=== PATIENT | male | born 1990 | race Caucasian/White ===

== ENCOUNTER 2019-09-05 20:52 | Observation (INO) ==
[2019-09-05] MEDS ORDERED: IOPAMIDOL 100 ML BOTTLE IV ONE (20:53)
--- NOTE | 2019-09-05 21:33 | Emergency Department Note ---
Abdominal Pain HPI - General Chief Complaint: Abdominal Pain Stated Complaint: abd pain Time Seen by Provider: 09/05/19 21:05 Source: patient Mode of arrival: ambulatory Limitations: no limitations - History of Present Illness HPI Narrative: 29-year-old male presents with right-sided abdominal pain for last 3 days. States it started out real mild and diffuse to the right upper and right lower quadrant of the abdomen. Over the last 3 days is progressively gotten worse and much worse today. Today it is really localized to the right lower quadrant of the abdomen. Pain is worse with movement. His nausea or vomiting. Decreased appetite today. No diarrhea. No fever or chills. Has never had pain like this in the past. Denies any abdominal surgeries. No home treatments. No dysuria or frequency. - Related Data Home Medications Medication Instructions Recorded Confirmed No Known Home Meds 09/05/19 09/05/19 Allergies Allergy/AdvReac Type Severity Reaction Status Date / Time No Known Drug Allergies Allergy Unverified 09/05/19 20:58 Review of Systems All systems ED: reviewed and negative except as stated. Abdominal Pain PMH - Past Medical History Medical history: Reports: no medical history Surgical history ED: Reports: orthopedic, other (Arm) - Social History Smoking status: Never smoker Alcohol use: Reports: Occasionally Drug use: Reports: none Physical Exam Limitations: no limitations General appearance: alert, obese Head: atraumatic, normocephalic, normal inspection Eye: Present: normal appearance. Absent: conjunctival injection ENT: Present: mucous membranes moist Chest: Present: symmetric chest wall rise Respiratory: Present: normal lung sounds bilaterally. Absent: respiratory distress, rales/crackles, wheezes, accessory muscle use Cardiovascular: Present: regular rate Abdominal: Present: soft, tenderness (Right lower quadrant and right periumbilical), normal bowel sounds. Absent: distention, guarding, rebound, rigidity, mass Neurological: Present: alert, oriented X3 Psychiatric: Present: normal affect, normal mood Skin: Present: warm, dry, intact Course Course Narrative: At 2145, care turned over to Dr. irwin due to shift change. Vital Signs Temperature 98.9 F 09/05/19 20:53 Pulse Rate 91 H 09/05/19 20:53 Respiratory Rate 18 09/05/19 20:53 Blood Pressure 147/100 09/05/19 20:53 Pulse Oximetry (%) 99 09/05/19 20:53 Temperature 99.8 F H 09/06/19 08:54 Pulse Rate 112 H 09/06/19 08:54 Respiratory Rate 24 H 09/06/19 08:54 Blood Pressure 132/89 09/06/19 08:54 Pulse Oximetry (%) 96 09/06/19 08:54 Abdominal Pain - Lab Data Result diagrams: 09/05/19 21:30 09/05/19 21:30 Lab Results 09/05/19 09/05/19 Range/Units 21:30 21:30 WBC 12.0 H (4.50-11.00) K/mcL RBC 4.91 (4.63-6.08) M/mcL Hgb 14.3 (13.7-17.5) g/dL Hct 43.8 (40.1-51.0) % POC Hct 42.0 (41.0-55.0) % MCV 89.2 (80.0-100.0) fL MCH 29.1 (26.0-34.0) pg MCHC 32.6 (31.0-36.0) g/dL RDW 12.6 (11.5-14.5) % Plt Count 340 (140-440) K/mcL MPV 9.5 (7.4-10.4) fL Gran % 78.3 H (38.0-78.0) % Lymph % (Auto) 13.3 L (15.5-49.0) % Wharton % (Auto) 6.0 (1.0-12.0) % Eos % (Auto) 1.9 (0.0-7.0) % Baso % (Auto) 0.5 (0.0-2.0) % Gran # 9.39 H (1.80-8.00) K/mcL Lymph # (Auto) 1.60 (1.50-4.80) K/mcL Wharton # (Auto) 0.72 (0.10-0.90) K/mcL Eos # (Auto) 0.23 (0.00-0.70) K/mcL Baso # (Auto) 0.06 (0.00-0.30) K/mcL POC Sodium 136 (133-145) mmol/L Sodium 136 (133-145) mmol/L POC Potassium 4.1 (3.3-5.1) mmol/L Potassium 4.2 (3.3-5.1) mmol/L POC Chloride 106 (96-108) mmol/L Chloride 101 (96-108) mmol/L Carbon Dioxide 21 L (22-30) mmol/L POC Total CO2 26 (22-30) mmol/L Anion Gap 14.0 (8-16) POC BUN 19 (6-20) mg/dl BUN 15 (6-20) mg/dl Creatinine 0.9 (0.7-1.2) mg/dl POC Creatinine 0.9 (0.7-1.2) mg/dl GFR Calculation 113 Glucose 120 H (70-105) mg/dL POC Glucose 124 H (70-105) mg/dL Calcium 9.0 (8.6-10.4) mg/dl POC WB Ioniz Calcium 1.04 L (1.16-1.32) mmol/L Total Bilirubin 0.2 (0.0-1.0) mg/dL AST 19 (0-37) U/l ALT 24 (0-40) U/l Alkaline Phosphatase 55 (39-117) U/L Total Protein 7.1 (5.9-8.4) gm/dL Albumin 3.9 (3.2-5.2) gm/dL Globulin 3.2 (2.2-3.7) gm/dL Albumin/Globulin Ratio 1.2 (1.0-2.3) Disposition Pt seen by BINDING STITCHER/PA only: No Clinical Impression: Acute appendicitis Disposition: Xfer As Outpt/Obs ([facility]) Condition: Good
[2019-09-05 21:36] LABS: POC Blood Urea Nitrogen 19 mg/dl (6-20); POC CO2 26 mmol/L (22-30); POC Calcium, Ionized 1.04 mmol/L (1.16-1.32); POC Chloride 106 mmol/L (96-108); POC Creatinine 0.9 mg/dl (0.7-1.2); POC Glucose, Random 124 mg/dL (70-105); POC Potassium 4.1 mmol/L (3.3-5.1); POC Sodium 136 mmol/L (133-145)
[2019-09-05 22:06] LABS: Basophils # (Auto) 0.06 K/mcL (0.00-0.30); Basophils % (Auto) 0.5 % (0.0-2.0); Eosinophils # (Auto) 0.23 K/mcL (0.00-0.70); Eosinophils % (Auto) 1.9 % (0.0-7.0); Granulocytes % (Auto) 78.3 % (38.0-78.0); Hematocrit 43.8 % (40.1-51.0); Hemoglobin 14.3 g/dL (13.7-17.5); Lymphocytes % (Auto) 13.3 % (15.5-49.0); Mean Cell Volume 89.2 fL (80.0-100.0); Mean Corpuscular HGB Conc 32.6 g/dL (31.0-36.0); Mean Platelet Volume 9.5 fL (7.4-10.4); Monocytes # (Auto) 0.72 K/mcL (0.10-0.90); Platelet Count 340 K/mcL (140-440); RBC 4.91 M/mcL (4.63-6.08); Red Cell Distribution Width 12.6 % (11.5-14.5)
[2019-09-05] MEDS ORDERED: PIPERACILLIN SODIUM/TAZOBACTAM 3.375 GM in DEXTROSE 5% IN WATER 50 ML IV ONE (22:14)
[2019-09-05] MEDS ORDERED: ONDANSETRON 4 MG/2 ML VIAL IV PRN (22:17)
[2019-09-05 22:19] LABS: ALT/SGPT 24 U/l (0-40); AST/SGOT 19 U/l (0-37); Albumin 3.9 gm/dL (3.2-5.2); Albumin/Globulin Ratio 1.2 (1.0-2.3); Alkaline Phosphatase 55 U/L (39-117); Bilirubin,Total 0.2 mg/dL (0.0-1.0); Blood Urea Nitrogen 15 mg/dl (6-20); Carbon Dioxide 21 mmol/L (22-30); Chloride 101 mmol/L (96-108); Globulin 3.2 gm/dL (2.2-3.7); Glomerular Filtration Rate 113; Glucose 120 mg/dL (70-105)
--- NOTE | 2019-09-05 22:19 | Emergency Department Note ---
Abdominal Pain HPI - General Chief Complaint: Abdominal Pain Stated Complaint: abd pain Time Seen by Provider: 09/05/19 21:05 Source: patient Mode of arrival: ambulatory Limitations: no limitations - History of Present Illness HPI Narrative: I took over care of this patient at 10 PM. - Related Data Home Medications Medication Instructions Recorded Confirmed No Known Home Meds 09/05/19 09/05/19 Allergies Allergy/AdvReac Type Severity Reaction Status Date / Time No Known Drug Allergies Allergy Unverified 09/05/19 20:58 Abdominal Pain PMH - Past Medical History Medical history: Reports: no medical history - Social History Smoking status: Never smoker Alcohol use: Reports: Occasionally Drug use: Reports: none Physical Exam Limitations: no limitations General appearance: alert, obese Course Vital Signs Temperature 98.9 F 09/05/19 20:53 Pulse Rate 91 H 09/05/19 20:53 Respiratory Rate 18 09/05/19 20:53 Blood Pressure 147/100 09/05/19 20:53 Pulse Oximetry (%) 99 09/05/19 20:53 Temperature 98.9 F 09/05/19 20:53 Pulse Rate 91 H 09/05/19 20:53 Respiratory Rate 18 09/05/19 20:53 Blood Pressure 143/102 09/05/19 21:29 Pulse Oximetry (%) 98 09/05/19 21:29 Abdominal Pain - MDM Narrative Medical decision making narrative: CT scan shows unruptured acute appendicitis and he will be admitted to the hospital for Dr. Hong after getting Zosyn IV. - Lab Data Lab results reviewed: Yes I reviewed the patient's lab results. Result diagrams: 09/05/19 21:30 09/05/19 21:30 Lab Results 09/05/19 09/05/19 Range/Units 21:30 21:30 WBC 12.0 H (4.50-11.00) K/mcL RBC 4.91 (4.63-6.08) M/mcL Hgb 14.3 (13.7-17.5) g/dL Hct 43.8 (40.1-51.0) % POC Hct 42.0 (41.0-55.0) % MCV 89.2 (80.0-100.0) fL MCH 29.1 (26.0-34.0) pg MCHC 32.6 (31.0-36.0) g/dL RDW 12.6 (11.5-14.5) % Plt Count 340 (140-440) K/mcL MPV 9.5 (7.4-10.4) fL Gran % 78.3 H (38.0-78.0) % Lymph % (Auto) 13.3 L (15.5-49.0) % Whitley % (Auto) 6.0 (1.0-12.0) % Eos % (Auto) 1.9 (0.0-7.0) % Baso % (Auto) 0.5 (0.0-2.0) % Gran # 9.39 H (1.80-8.00) K/mcL Lymph # (Auto) 1.60 (1.50-4.80) K/mcL Whitley # (Auto) 0.72 (0.10-0.90) K/mcL Eos # (Auto) 0.23 (0.00-0.70) K/mcL Baso # (Auto) 0.06 (0.00-0.30) K/mcL POC Sodium 136 (133-145) mmol/L POC Potassium 4.1 (3.3-5.1) mmol/L POC Chloride 106 (96-108) mmol/L POC Total CO2 26 (22-30) mmol/L POC BUN 19 (6-20) mg/dl POC Creatinine 0.9 (0.7-1.2) mg/dl POC Glucose 124 H (70-105) mg/dL POC WB Ioniz Calcium 1.04 L (1.16-1.32) mmol/L - Radiology Data Radiology results reviewed: Yes I reviewed the patient's radiology results. Disposition Pt seen by TOLL BOOTH OPERATOR/PA only: No Clinical Impression: Acute appendicitis Disposition: Xfer As Outpt/Obs ([facility]) Condition: Good Referrals: No,PCP [Primary Care Provider] - Time of Disposition: 22:19
[2019-09-05] MEDS: LACTATED RINGERS 1,000 ML IV SCH (23:00)
[2019-09-05] MEDS: HYDROmorphone 0.5 MG/0.5 ML SYRINGE IV PRN (23:40)
[2019-09-06] MEDS: HYDROmorphone 0.5 MG/0.5 ML SYRINGE IV PRN ×2 (02:53→06:33)
[2019-09-06] MEDS: LACTATED RINGERS 1,000 ML IV SCH ×2 (05:12→12:26)
--- NOTE | 2019-09-06 06:05 | Cat Scan Report ---
INDICATION: rlq abd pain, no oral contrast COMPARISON: None. TECHNIQUE: Axial images were obtained through the abdomen and pelvis. Sagittally and coronally reformatted images. 80 Isovue 370 injected intravenously. Oral contrast material was not administered FINDINGS: The examination was initially interpreted by [facility] Lung bases:Negative. No pulmonary parenchymal nodule. No pleural fluid or pericardial fluid Liver:Negative. No focal intrahepatic mass. No focal abnormality. Liver contour is smooth. No evidence for cirrhosis. Liver is mildly low in density as compared with the spleen are consistent with fatty infiltration Gallbladder, bilary:No calcified gallstones. No gallbladder wall thickening. No dilated intra or extrahepatic bile ducts. Spleen:No splenomegaly. Normal enhancement of splenic and portal veins. Pancreas:No pancreatic mass. No peripancreatic abnormality Adrenal glands:Negative Kidneys, ureters, bladder:No solid or cystic renal mass. No hydronephrosis. No obstructing calculi. There is no hydroureter. No ureteral stone No bladder calculi or detectable mass Gastrointestinal:No detectable colonic mass. There is no diverticulitis. Small bowel is negative. No mechanical small bowel obstruction. Stomach and duodenum are unremarkable Appendix: The appendix is abnormal. The appendix is enlarged and measures approximately 15 mm in cross-sectional diameter. There is a 10 mm proximal appendicolith. There are smaller distal appendicoliths. There is periappendiceal inflammatory change. There is no periappendiceal fluid collection. There is no abscess. No evidence for ruptured appendicitis. Vascular:Negative abdominal aorta. Superior mesenteric artery and celiac trunk are normal. Normal opacification of the inferior mesenteric artery Lymphatic:No retroperitoneal or mesenteric adenopathy Mesentery, peritoneum: No free intraperitoneal fluid. No mesenteric or retroperitoneal mass. Reproductive:No significant prostatic enlargement Musculoskeletal:No lumbar compression fractures. Sacrum and pelvis are negative. No hip fracture. IMPRESSION: 1. Acute appendicitis without CT evidence for rupture 2. Appendicoliths as above The exam was performed using radiation dose optimization techniques including, but not limited to, automated exposure control, adjustment of the mA and/or kV according to patient size and use of iterative reconstruction technique. Interpreted and Authenticated by: Wolfgang Stallworth 09/06/19
[2019-09-06] MEDS ORDERED: ACETAMINOPHEN 1,000 MG/100 ML BOTTLE IV ONE (10:40)
--- NOTE | 2019-09-06 12:40 | General Surg History&Physical ---
History of Present Illness Patient information: Note initiated : 09/06/19 at 12:37 pm Service Date, if different from initiated Date: [] Patient: Jordan Garcias 29 y/o M admitted on 09/05/19 for abd pain. Chief Complaint: [] HPI: Mr. Garcias is a 29 year old M Admitted with acute appendicitis. The patient had onset of mild pain in his right lower quadrant on Friday. It became much worse over the weekend. He was finally seen in the emergency room last evening with a tender right lower quadrant. CT shows a dilated edematous appendix with multiple fecaliths. White blood count is elevated. Patient is admitted and is counseled for laparoscopic appendectomy. Review of Systems All systems PM: reviewed and no additional remarkable complaints except as stated (negative except as noted in HPI) Past History Past medical history: No chronic medical illness Past surgical history: No surgical procedure Past family history: Mother age 58 health unknown Father age 59 in good health No siblings Past social history: Single Denies tobacco use Denies drug use Occasional alcohol use Medications and Allergies Home Medications Medication Instructions Recorded Confirmed Type No Known Home Meds 09/05/19 09/05/19 History Allergies Allergy/AdvReac Type Severity Reaction Status Date / Time No Known Drug Allergies Allergy Unverified 09/05/19 20:58 Exam Temp Pulse Resp BP Pulse Ox 100 F H 114 H 20 129/79 92 09/06/19 11:19 09/06/19 11:19 09/06/19 10:53 09/06/19 10:53 09/06/19 10:53 - General physical appearance well developed, well nourished, moderate distress, moderate pain, obese (BMI 54) - Eyes PERRL, normal ocular movement - ENT normal pinna, normal nares, normal mucosa, no hearing loss, no congestion - Head Head exam IM: Present: atraumatic, normocephalic - Neck no masses, no bruits, trachea midline, no lymphadenopathy, no venous distension - Cardiovascular Cardiovascular exam IM: Present: normal rate and rhythm - Respiratory normal expansion, normal respiratory effort, clear to percussion, clear to auscultation - Abdomen Abdomen: Present: soft, tender ( diffusely tender right lower quadrant; good active bowel sounds), bowel sounds, guarding, rebound Hernia: Present: none - Genitourinary Present: normal penis with no external lesions - Integumentary Present: no rash, no growths, no abnormal pigmentation - Neurologic Present: normal coordination, normal sensation - Musculoskeletal Present: normal gait, normal posture - Psychiatric Present: oriented to time, oriented to person, oriented to place, speech is normal, memory intact Assessment and Plan (1) Acute appendicitis Patient is counseled for laparoscopic appendectomy Status: Acute (2) Morbid obesity with BMI of 50.0-59.9, adult Status: Acute
[2019-09-06] MEDS ORDERED: SUGAMMADEX SODIUM 200 MG/2 ML VIAL IV ONE (13:40)
[2019-09-06] MEDS ORDERED: PROPOFOL 200 MG/20 ML VIAL IV ONE (13:40)
[2019-09-06] MEDS ORDERED: ROCURONIUM 10 MG/ML ML IV ONE (13:40)
[2019-09-06] MEDS ORDERED: ONDANSETRON 4 MG/2 ML VIAL IV ONE (13:40)
[2019-09-06] MEDS ORDERED: fentaNYL 100 MCG/2 ML VIAL IV ONE (13:40)
[2019-09-06] MEDS ORDERED: SUCCINYLCHOLINE 20 MG/ML ML IV ONE (13:40)
[2019-09-06] MEDS ORDERED: LIDOCAINE HCL/PF 100 MG/5 ML SYRINGE IV ONE (13:40)
[2019-09-06] MEDS ORDERED: DEXAMETHASONE 10 MG/ML VIAL IV ONE (13:40)
[2019-09-06] MEDS ORDERED: KETAMINE 100 MG/ML ML IV ONE (13:40)
[2019-09-06] MEDS ORDERED: PIPERACILLIN SODIUM/TAZOBACTAM 3.375 GM in DEXTROSE 5% IN WATER 50 ML IV SCH (14:00)
[2019-09-06] MEDS ORDERED: BENZOCAINE/MENTHOL 1 LOZENGE PO PRN ×2 (14:17→15:58)
[2019-09-06] MEDS ORDERED: NALOXONE HCL 0.4 MG/ML VIAL IV PRN ×2 (14:17→15:58)
[2019-09-06] MEDS ORDERED: IPRATROPIUM/ALBUTEROL 3 ML AMPUL.NEB NEB PRN ×2 (14:17→15:58)
[2019-09-06] MEDS ORDERED: MEPERIDINE 25 MG/ML SYRINGE IV PRN ×2 (14:17→15:58)
[2019-09-06] MEDS ORDERED: PROMETHAZINE 25 MG/ML VIAL IV PRN ×2 (14:17→15:58)
[2019-09-06] MEDS ORDERED: ONDANSETRON 4 MG/2 ML VIAL IV PRN ×3 (14:17→15:58)
[2019-09-06] MEDS ORDERED: fentaNYL 100 MCG/2 ML VIAL IV PRN ×2 (14:17→15:58)
[2019-09-06] MEDS ORDERED: diphenhydrAMINE 50 MG/ML VIAL IV PRN ×2 (14:17→15:58)
[2019-09-06] MEDS ORDERED: KETOROLAC 30 MG/ML VIAL IV PRN ×2 (14:17→15:58)
[2019-09-06] MEDS ORDERED: LACTATED RINGERS 250 ML IV PRN ×2 (14:17→15:58)
[2019-09-06] MEDS ORDERED: LACTATED RINGERS 1,000 ML IV SCH ×3 (14:30→15:58)
--- NOTE | 2019-09-06 14:33 | Brief Operative Note ---
Date of procedure: 09/06/19 Pre-op diagnosis: acute appendicitis Post-op diagnosis: other (acute gangrenous appendicitis) Procedure: laparoscopic appendectomy Grafts/Implants: No Anesthesia: GETA Findings: total gangrenous changes of appendix Complications: none Surgeon: Leandro Hong Estimated blood loss (cc): 10 Specimens Removed/Pathology: other (appendix) Condition: stable Disposition: PACU
[2019-09-06] MEDS ORDERED: HYDROmorphone 0.5 MG/0.5 ML SYRINGE IV PRN (15:58)
[2019-09-06] MEDS: 0.9 % SODIUM CHLORIDE 1,000 ML IV SCH ×2 (17:13→22:07)
[2019-09-06] MEDS: HYDROmorphone 1 MG/ML SYRINGE IV PRN ×2 (17:50→22:05)
[2019-09-06] MEDS: PIPERACILLIN SODIUM/TAZOBACTAM 3.375 GM in DEXTROSE 5% IN WATER 50 ML IV SCH (20:10)
[2019-09-06] MEDS: 0.9 % SODIUM CHLORIDE 10 ML SYRINGE IV SCH (21:59)
[2019-09-07] MEDS: PIPERACILLIN SODIUM/TAZOBACTAM 3.375 GM in DEXTROSE 5% IN WATER 50 ML IV SCH ×3 (00:34→11:53)
[2019-09-07] MEDS: 0.9 % SODIUM CHLORIDE 10 ML SYRINGE IV SCH ×2 (04:26→14:01)
[2019-09-07 07:10] LABS: Basophils # (Auto) 0.01 K/mcL (0.00-0.30); Basophils % (Auto) 0.1 % (0.0-2.0); Eosinophils # (Auto) 0 K/mcL (0.00-0.70); Eosinophils % (Auto) 0 % (0.0-7.0); Granulocytes % (Auto) 90.4 % (38.0-78.0); Hematocrit 40.5 % (40.1-51.0); Hemoglobin 13.3 g/dL (13.7-17.5); Lymphocytes # (Auto) 0.51 K/mcL (1.50-4.80); Lymphocytes % (Auto) 4.1 % (15.5-49.0); Mean Cell Volume 91.2 fL (80.0-100.0); Mean Corpuscular HGB Conc 32.8 g/dL (31.0-36.0); Mean Platelet Volume 9.6 fL (7.4-10.4); Monocytes # (Auto) 0.66 K/mcL (0.10-0.90); Monocytes % (Auto) 5.4 % (1.0-12.0); Platelet Count 252 K/mcL (140-440); RBC 4.44 M/mcL (4.63-6.08); WBC 12.3 K/mcL (4.50-11.00)
[2019-09-07] MEDS: 0.9 % SODIUM CHLORIDE 1,000 ML IV SCH ×3 (07:49→12:47)
--- NOTE | 2019-09-07 14:21 | Discharge Summary ---
Providers - Providers Patient information: Note initiated : 09/07/19 at 2:18 pm Service Date, if different from initiated Date: [] Patient: Jordan Garcias 29 y/o M admitted on 09/05/19 for abd pain. Chief Complaint: [] Date of admission: 09/05/19 Discharge date: 09/07/19 Attending physician: Leandro Hong Hospitalization Hospital Course: 29-year-old male who presented to the emergency room with a three-day history of painful right lower quadrant with nausea vomiting. CT evaluation of the abdomen revealed acute appendicitis. He underwent laparoscopic appendectomy yesterday and was found to have acute gangrenous changes of the entire appendix. There was mild periappendiceal tissue edema but no for amanda abscess. He has done well. His white count is slightly elevated. He is tolerating diet without difficulty. White count 12.3, hemoglobin 13.3, hematocrit 40.5. Patient is clinically stable for discharge. Discharge diagnosis: acute gangrenous appendicitis Reason for admission: acute appendicitis Procedures: Laparoscopic appendectomy Pertinent studies/significant findings: CT of abdomen and pelvis with IV contrast Complications: None Exam Temp Pulse Resp BP Pulse Ox 98.4 F 95 H 16 143/91 95 09/07/19 11:39 09/07/19 11:39 09/07/19 11:39 09/07/19 11:39 09/07/19 11:39 - General physical appearance well developed, well nourished, no distress - Eyes PERRL, normal ocular movement - ENT normal pinna, normal nares, normal mucosa, no hearing loss, no congestion - Head Head exam IM: Present: atraumatic, normocephalic - Neck no masses, no bruits, trachea midline, no lymphadenopathy, no venous distension - Cardiovascular Cardiovascular exam IM: Present: normal rate and rhythm - Respiratory normal expansion, normal respiratory effort, clear to auscultation - Abdomen Abdomen: Present: soft, tender (mild tenderness of the port sites but otherwise benign abdomen), bowel sounds, distended ( nondistended abdomen) Hernia: Present: none - Genitourinary Present: normal penis with no external lesions - Integumentary Present: no rash, no growths, no abnormal pigmentation - Neurologic Present: normal coordination, normal sensation - Musculoskeletal Present: normal gait, normal posture - Psychiatric Present: oriented to time, oriented to person, oriented to place, speech is normal, memory intact Discharge Plan - Patient/Caregiver Discharge Instructions Activity: increase activity as tolerated Diet: Regular Diet Additional Instructions: May leave Tegaderm dressings on until you return to the office Made contact office for dressing change if needed Prescriptions: oxyCODONE/APAP [Percocet 5-325 mg] 1 tab PO Q4HP PRN #20 tab PRN Reason: Pain Transmission Status: Sent to [facility] - Follow up Plan Follow up with: No,PCP [Primary Care Provider] - Disposition: Home, Self-Care Prognosis: Good Rehab Potential: Good I certify that the patient requires SNF services.: No (were changed) Overall status at discharge: patient is progressing back to baseline Pending Studies Resuscitation Status Full Code Diet GI Soft/Transitional Start FriSep 06 0800 Hydromorphone HCl (Dilaudid) 1 mg IV Q2HP PRN; Protocol PRN Reason: Per Pain Protocol Last Admin: 09/06/19 22:05 Dose: 1 mg Documented by: Admin: 09/06/19 17:50 Dose: 1 mg Documented by: [email or web address] Piperacillin Sod/Tazobactam (Sod 3.375 gm/ Dextrose) 50 mls @ 100 mls/hr IV Q6H [facility]; Protocol Last Infusion: 09/07/19 12:25 Dose: 0 mls/hr Documented by: Admin: 09/07/19 11:53 Dose: 100 mls/hr Documented by: Infusion: 09/07/19 05:16 Dose: 100 mls/hr Documented by: Admin: 09/07/19 04:46 Dose: 100 mls/hr Documented by: Infusion: 09/07/19 01:04 Dose: 100 mls/hr Documented by: Admin: 09/07/19 00:34 Dose: 100 mls/hr Documented by: Infusion: 09/06/19 20:40 Dose: 100 mls/hr Documented by: Admin: 09/06/19 20:10 Dose: 100 mls/hr Documented by: ARLETH Sodium Chloride (Sodium Chloride 0.9%) 1,000 mls @ 150 mls/hr IV .Q6H40M [facility] Last Admin: 09/07/19 12:47 Dose: Not Given Documented by: Admin: 09/07/19 08:54 Dose: 150 mls/hr Documented by: [facility] Admin: 09/07/19 07:49 Dose: Not Given Documented by: [facility] Infusion: 09/07/19 04:48 Dose: 150 mls/hr Documented by: F Admin: 09/06/19 22:07 Dose: 150 mls/hr Documented by: Infusion: 09/06/19 22:07 Dose: 150 mls/hr Documented by: Admin: 09/06/19 17:13 Dose: 150 mls/hr Documented by: [email or web address] Sodium Chloride (Saline Flush) 10 ml IV Q8 [facility] Last Admin: 09/07/19 14:01 Dose: Not Given Documented by: [facility] Admin: 09/07/19 04:26 Dose: Not Given Documented by: Admin: 09/06/19 21:59 Dose: Not Given Documented by: ARLETH Shift Summary 09/07/19 04:31 Shift Summary by Kelsy Zazueta Minimal needs/ request, Voiding at bedside, 500mls. Calls for assist- able to make needs known. NS at 150mls. 3 lap sites w/ shell. RA. VSS. Dilaudid 1mg PRN pain- only given 1 dose on NOCs. Slept most of shift. Doing great, SBA w/ ambulation. Initialized on 09/07/19 04:31 - END OF NOTE
--- NOTE | 2019-09-08 10:55 | Surgical Pathology Report ---
HISTOLOGY SPECIMEN MICROSCOPIC DIAGNOSIS APPENDIX, APPENDECTOMY: -- ACUTE APPENDICITIS. (RLF:adj) PROCEDURAL IMPRESSION Appendicitis. GROSS DESCRIPTION Received in formalin labeled appendix, is a gonzalez-north appendix that measures 9.5 cm in length by 1.1 cm in diameter. There is gonzalez-north exudate on the serosal surface. There is up to 2.5 cm of attached north fat. The resection margin is stapled. This is inked black. Sectioning reveals viscous pink-north fluid and north fecal material. Grossly there are no areas of perforation identified. Cake Washer sections submitted in one cassette. (SCB:sln) Electronically Signed by: Brielle Chaparro M.D.
--- NOTE | 2019-09-27 16:18 | Operative Note ---
DATE OF OPERATION: 09/06/2019 PREOPERATIVE DIAGNOSIS: Acute appendicitis. POSTOPERATIVE DIAGNOSIS: Acute gangrenous appendicitis. PROCEDURE PERFORMED: Laparoscopic appendectomy. SURGEON: Leandro Hong M.D. FINDINGS: Total gangrenous, gonzalez, necrotic appendix with inflammation. DESCRIPTION OF PROCEDURE: Under general anesthesia, the patient's abdomen was prepped and draped in a sterile field. Timeout procedure was carried out as per protocol. Supraumbilical incision was made and Veress needle was inserted uneventfully. Abdomen was insufflated with 2.5 liters of CO2. A 12 mm port was placed. Laparoscope was placed. The patient was placed in deep Trendelenburg position. Under videoscopic guidance, a 5 mm port was placed into the suprapubic midline and a 12 mm port in the left lower quadrant. The appendix was noted at the base of the cecum. It was also attached to the lateral sidewall. It was dissected free using blunt dissection. A window was made at the base and the base of the appendix was transected using the Endo SHAHEEN stapler. The mesoappendix was transected using the Endo SHAHEEN stapler. Hemostasis was achieved. Irrigation was carried out. There was no bleeding, and there was no abscess or purulent fluid. CO2 was allowed to escape from the abdomen and the ports were removed. Fascia at the umbilicus was closed with 0 Vicryl. Skin incisions were closed with shell. Tegaderm dressings were placed. The patient tolerated the procedure well. He was awakened, transferred to a bed, and taken to the postanesthetic care unit in stable, satisfactory condition. The appendix was placed in an Endopouch and removed prior to removing the ports. LCS:rina Job ID: [id number] Doc ID: [id number] Leandro Hong M.D.
== END 2019-09-07 14:50 | disposition home or self-care (01) ==
LOC: MEDSUR 20:52 → ED 20:52 → MEDSUR 22:40
PROVIDERS: ADMIT Family Medicine Adult Medicine; ATTEND Family Medicine Adult Medicine